=== PATIENT | male | born 2000 | race Caucasian/White ===

== ENCOUNTER 2025-01-22 14:42 | Emergency (ER) | payer SELFPAY ==
[2025-01-22 15:14] VITALS: BP 137/74; PULSE 64; RESP 16; TEMP 36.9; O2SAT 98
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
== END 2025-01-22 17:40 | disposition home or self-care (01) ==
PROVIDERS: Emergency Provider Nurse Practitioner Primary Care
DX: S20.211A Contusion of right front wall of thorax, initial encounter (principal); V89.2XXA Person injured in unspecified motor-vehicle accident, traffic, initial encounter; M25.572 Pain in left ankle and joints of left foot; R51.9 Headache, unspecified
CPT/HCPCS: 70450; 71101; 73080; 73610; 99284